=== PATIENT | male | born 1970 | race Caucasian/White ===

== ENCOUNTER 2017-06-12 11:03 | Observation (INO) | payer OTHER ==
[2017-06-12 12:00] LABS: Hematocrit 42 % (42-52); Hemoglobin 14.1 g/dl (14.0-18.0); Mean Corpuscular HGB Conc 33 g/dl (31-36); Mean Corpuscular Hemoglobin 28 pg (27-31); Mean Corpuscular Volume 85 fL (80-94); Mean Platelet Volume 7 um3 (7.4-10.4); Red Blood Count 4.98 10^6/ul (4.0-5.4); Red Cell Distribution Width 14 % (10.5-15)
[2017-06-12 12:16] LABS: Ammonia 40 mol/L (16-53)
[2017-06-12 12:17] LABS: Albumin 4.2 g/dL (3.2-5.2); BUN/Creatinine Ratio 20.4 (8-20); Calcium 9.1 mg/dL (8.6-10.3); EGFR African American 99.1 (>60); EGFR Non-African American 77.1 (>60); Globulin 2.6 g/dL (2-4); Magnesium 2.3 mg/dL (1.9-2.7); Potassium 4.6 mmol/L (3.5-5.0); Total Bilirubin 0.3 mg/dL (0.2-1.0); Total Protein 6.8 g/dL (6.4-8.9)
[2017-06-12 12:18] LABS: Troponin I 0.01 ng/mL (<0.04)
--- NOTE | 2017-06-12 12:19 | RAD ---
INDICATION: Syncope. COMPARISON: Comparison is made with a prior chest x-ray study from February 28, 2013. TECHNIQUE: Dual-energy PA and lateral views of the chest were obtained. FINDINGS: The heart is within normal limits in size. Mediastinal and hilar contours appear within normal limits. The lungs are clear. No pleural effusion is present. IMPRESSION: NO EVIDENCE FOR ACTIVE CARDIOPULMONARY DISEASE.
[2017-06-12 12:21] LABS: B Type Natriuretic Peptide 25 pg/mL
--- NOTE | 2017-06-12 12:56 | RAD ---
Indication: Dizziness and shortness of breath. Syncope. Comparison: No relevant prior exams available on the [facility] PACS for comparison. Technique: Noncontrast CT vertex of skull through foramen magnum. Report: The sulci, ventricles, and basal cisterns are normal for age. Pierre matter white matter differentiation is preserved without evidence for edema. No intra or extra axial hemorrhage, mass, or fluid collection detected. Unremarkable visualized orbital contents. Mild foci of ossification of the interhemispheric falx without concern. Unremarkable calvarium and skull base. Unremarkable scalp. The visualized paranasal sinuses and mastoid air spaces are clear. IMPRESSION: Negative unenhanced head CT.
[2017-06-12 13:21] LABS: TSH (Thyroid Stimulating Horm) 1.59 mcIU/mL (0.34-5.60)
[2017-06-12] MEDS ORDERED: Iodixanol* (CONTRAST) 320 MG/ML 100 ML SDV IV ONE (14:33)
[2017-06-12] MEDS ORDERED: Ibuprofen TAB* 600 MG PO PRN (15:32)
[2017-06-12] MEDS ORDERED: Aspirin EC Low Dose* 81 MG TAB.EC PO ONE (15:32)
[2017-06-12] MEDS ORDERED: Acetaminophen TAB* 325 MG PO PRN (15:32)
[2017-06-12] MEDS ORDERED: Ondansetron INJ* 2 MG/ML VIAL IV PRN (15:32)
[2017-06-12] MEDS ORDERED: Dextrose 50% Syringe 50 ML* 25 GM/50 ML SYRINGE IV PUSH PRN (15:34)
--- NOTE | 2017-06-12 15:38 | RAD ---
INDICATION: Shortness of breath and syncope. COMPARISON: Comparison is made with a prior chest x-ray study from June 12, 2017. TECHNIQUE: A CT angiogram of the chest was performed with intravenous following intravenous injection of 96 ml of Visipaque 320 nonionic contrast. Contiguous axial sections were obtained from the lung apices through the lung bases. Images were reconstructed in the coronal and sagittal planes. FINDINGS: There is slightly suboptimal opacification of the pulmonary arteries. No intraluminal filling defect or pulmonary embolism is seen. The heart is within normal limits in size. No pericardial effusion is present. The thoracic aorta is normal in caliber and demonstrates homogeneous contrast opacification. No significant enlarged mediastinal or hilar lymph nodes are seen. There is a small 4 mm low suspicion right upper lobe pulmonary nodule best seen on axial image #17. There is mild dependent bilateral lower lobe subsegmental atelectasis. The lungs are otherwise clear. No pleural effusion is seen. Images of the upper abdomen was reported infiltration of the liver no acute findings are seen. No significant focal osseous abnormality is seen. IMPRESSION: 1. SLIGHTLY LIMITED EXAM, NO EVIDENCE FOR PULMONARY EMBOLISM. 2. SMALL LOW SUSPICION 4 MM RIGHT UPPER LOBE PULMONARY NODULE. IF THE PATIENT HAS RISK FACTORS RECOMMEND A FOLLOW-UP CT OF THE CHEST IN ONE YEAR'S TIME WITHOUT CONTRAST. 3. HEPATIC STEATOSIS.
[2017-06-12 15:52] LABS: Uric Acid 6.2 mg/dL (4.4-7.6)
[2017-06-12 17:30] LABS: Urine Bilirubin Negative (Negative); Urine Glucose Negative (Negative); Urine Nitrite Negative (Negative)
[2017-06-12 17:33] LABS: Benzodiazepine Urine Screen None Detected (None Detect)
[2017-06-12] MEDS: NS 0.9% 1000 ML* 1,000 ML IV SCH (17:34)
[2017-06-12 17:41] LABS: Erythrocyte Sed Rate 10 mm/Hr (0-14)
[2017-06-12] MEDS: Insulin LISPRO* 1 UNITS UNIT SUBCUT SCH ×2 (18:31→20:22)
[2017-06-12] MEDS: Heparin VIAL(*) 5000 UNITS/ML VIAL (FIVE THOUSAND) SUBCUT SCH (23:06)
--- NOTE | 2017-06-13 00:56 | HP ---
CC: Dr. Sanchez * HISTORY AND PHYSICAL: DATE OF ADMISSION: 06/12/17 TIME OF EVALUATION: 3 p.m. PRIMARY CARE PROVIDER: Dr. Sanchez. CHIEF COMPLAINT: "I passed out." HOSPITAL COURSE: Mr. Pradhan is a 46-year-old male with a past medical history of obesity, type 2 diabetes who presented to the emergency room after a syncopal episode at home. The patient states that he has been in his usual state of health. He indulged a little during Thanksgiving, but states that the food was not too salty because his grandma cannot eat salty food. He states that last night he had a zayas cheeseburger at [facility]; and, when he woke up this morning, he noted that both ankles were swollen and they are tender to palpation and with ambulation. He tried to go upstairs and while climbing the stairs, he felt dizzy, lightheaded, had chest pressure, became diaphoretic and by the time he got upstairs, he was short of breath, so he sat down and he states he lost consciousness while sitting there for less than a minute. His mother called EMS , and by the time they got there, his symptoms had resolved. His glucose was 157. He states that this systolic blood pressure was in the 140s and he was brought into the emergency room for further evaluation. In the ED, orthostatic vital signs were checked and were positive with a blood pressure of 180/61, heart rate 61, lying down; 116/67, heart rate of 79, sitting up; and a heart rate of 101 with blood pressure of 88/61 while standing. He states that when orthostatics were checked, but at that time he was standing up, he was becoming diaphoretic again, but this resolved when he lay back down. He denies nausea, vomiting, diarrhea. He states that he has been drinking fluids as usual and does not feel dehydrated. He last saw Dr. Sanchez 5 months ago and at that time pravastatin was added to regimen, but he states that the medication caused muscle aches, so he stopped taking it a week ago. PAST MEDICAL HISTORY: 1. Obesity. 2. Type 2 diabetes. 3. Nephrolithiasis. MEDICATION LIST: Metformin 500 mg p.o. b.i.d. ALLERGIES: No known drug allergies. FAMILY HISTORY: His father has a history of diabetes. Mother is healthy. He denies history of tobacco or alcohol use. He has 1 beer sporadically. He works at [employer]. Surrogate decision maker is his father, Eliel Pradhan, phone number is [phone]. REVIEW OF SYSTEMS: A 14-point review of systems was performed and all the pertinent negatives and positive findings are in the HPI. PHYSICAL EXAMINATION GENERAL: The patient is a middle-aged obese male, lying in the ED stretcher, in no acute distress. VITAL SIGNS: Temperature 98.3, heart rate is 65, respiratory rate is 16, oxygen saturation 95% on room air, blood pressure is 113/65. HEENT: Pupils are equal. Moist mucous membranes. CHEST: Breath sounds present bilaterally with no added sounds. CVS: Normal S1 and S2. Regular rate and rhythm. ABDOMEN: Soft. Bowel sounds are present. EXTREMITIES: He has mild bilateral lower extremity edema, especially around his ankles. There is no erythema or warmth, but they are sensitive to touch. NEURO: The patient is alert, awake, oriented x3. Able to move all 4 extremities. DIAGNOSTIC STUDIES/LAB DATA: CBC showed WBC of 11, hemoglobin of 14, hematocrit of 42, platelets of 314 with 73% neutrophils. D-dimer was 410. Chemistry showed a sodium of 138, potassium 4.6, chloride of 105, bicarb of 27, BUN of 21, creatinine of 1.03, glucose of 171. Calcium 9.1, magnesium 2.3. LFTs are normal. BNP is 25. Uric acid is pending. CT of the brain was negative, unenhanced head CT. Chest x-ray showed no evidence for active cardiopulmonary disease and CTA of the chest was a slightly limited exam, but no evidence for pulmonary embolism. There is a small, low suspicion 4 mm right upper lobe pulmonary nodule. If the patient has risk factors, recommend a followup CT of the chest in 1 year time without contrast, and also showed hepatic steatosis. ASSESSMENT AND PLAN: Mr. Pradhan is a 46-year-old male with a past medical history of obesity, type 2 diabetes, hyperlipidemia that presented to the emergency room after a syncopal episode at home, found to be orthostatic. 1. Syncopal episode. The patient appears to be euvolemic at this time. His orthostatism could be secondary to autonomic neuropathy. As he received a study with contrast, he is going to receive gentle IV hydration and we are going to monitor his vital signs. I am also going to check random cortisol level to look for adrenal insufficiency. With his complaints of shortness of breath, diaphoresis, and chest pressure while going upstairs, acute coronary artery syndrome needs to ruled out. He will be admitted to the telemetry floor. We are going to check serial troponins, and if ACS is ruled out, he is going to have a pharmacological Myoview stress test, as he does not think he would be able to walk on the treadmill. He will also have an echocardiogram. 2. Lower extremity edema. The patient does not seem to fluid overloaded at this time, although he did have a zayas cheeseburger for dinner last night. As he is orthostatic, I do not think diuresis would be safe at this point. I am concerned his bilateral ankle edema could represent gout, even though he does not have erythema or warmth at this time, only pain. I am going to check an ESR and a uric acid level. 3. Type 2 diabetes. We will check hemoglobin A1c. His metformin is on hold for 48 hours as the patient underwent a contrast study. We are going to check his fingersticks a.c. and h.s. and cover with the lispro sliding scale. 4. DVT prophylaxis: The patient has a score of 3 on the DVT Prophylaxis Risk Assessment Guide and he will be started on subcutaneous heparin. 5. Code status is full. TIME SPENT: Approximately 50 minutes were spent with patient interview, medical records review, physical examination to complete this admission; more than half of this time was spent [id number] with the patient and coordination of care. [id number]/[facility] #: [id number] YVONNE
[2017-06-13] MEDS: NS 0.9% 1000 ML* 1,000 ML IV SCH (06:06)
[2017-06-13] MEDS: Heparin VIAL(*) 5000 UNITS/ML VIAL (FIVE THOUSAND) SUBCUT SCH (06:06)
[2017-06-13 06:30] LABS: HDL Cholesterol 35.9 mg/dL
[2017-06-13] MEDS: Insulin LISPRO* 1 UNITS UNIT SUBCUT SCH ×2 (07:46→11:34)
[2017-06-13] MEDS ORDERED: Aspirin EC Low Dose* 81 MG TAB.EC PO SCH (09:00)
--- NOTE | 2017-06-13 09:46 | ECHO ---
Patient: EVAN BALTAZAR [facility] Rec#: [id number] : 1970 Date: 06/13/2017 Age: 46y Height: 187.96 cm / 74.0 in Weight: 137.89 kg / 303.9 lbs Sex: M BSA: 2.6 Room#: [facility] Admit Date#: 06/12/2017 Type: Inpatient Referring: Chantell Card MD Reading: Gucci Alicia MD Hand Finisher: Angela Caro RDCS CC: Norm Sanchez MD Transthoracic Echocardiogram Indication: Syncope BP: 132/64 HR: 61 Rhythm: NSR Findings History: DM, obesity. Technical Comments: The study quality is fair. The study is technically limited due to patient body habitus. Completed at 0830. Left Ventricle: The left ventricular chamber size is normal. Moderate concentric left ventricular hypertrophy is observed. Global left ventricular wall motion and contractility are within normal limits. There is normal left ventricular systolic function. The estimated ejection fraction is 55-60%. There is no consistent Doppler evidence of clinically significant diastolic dysfunction. Left Atrium: The left atrium is slightly dilated. Right Ventricle: Moderator Band present. The right ventricle is mildly dilated. The right ventricular global systolic function is normal. Right Atrium: The right atrium is mildly dilated. Aortic Valve: The aortic valve is trileaflet. The aortic valve leaflets are mildly thickened. There is no evidence of aortic regurgitation. There is no evidence of aortic stenosis. Mitral Valve: The mitral valve leaflets are mildly thickened. There is a trace of mitral regurgitation. There is no evidence of mitral stenosis. Tricuspid Valve: The tricuspid valve leaflets are normal. There is a physiologic tricuspid regurgitation. The right ventricular systolic pressure is estimated at 33 mmHg. There is no tricuspid stenosis. Pulmonic Valve: The pulmonic valve appears normal. There is no evidence of pulmonic regurgitation. There is no pulmonic stenosis. Pericardium: There is no significant pericardial effusion. A pericardial fat pad is visualized. Aorta: There is no dilatation of the ascending aorta. There is no dilatation of the aortic arch. The aortic root is normal in size. Pulmonary Artery: The main pulmonary artery appears normal. Venous: The inferior vena cava is dilated. There is a greater than 50% respiratory change in the inferior vena cava dimension. Conclusions Global left ventricular wall motion and contractility are within normal limits. There is normal left ventricular systolic function. The estimated ejection fraction is 55-60%. The right ventricular global systolic function is normal. There is no evidence of aortic stenosis. There is a trace of mitral regurgitation. There is a physiologic tricuspid regurgitation. The right ventricular systolic pressure is estimated at 33 mmHg. There is no significant pericardial effusion. Measurements Name Value Normal Range RVIDd (AP) 2D 3.2 cm (0.9 - 2.6) RVDdMajor (2D) 4.5 cm (2.2 - 4.4) RVAW (2D) 0.7 cm (0.2 - 0.5) RAd ISD 4CH 4.6 cm (3.4 - 4.9) RA (A4C)W 4.8 cm (2.9 - 4.6) IVSd (2D) 1.3 cm (0.6 - 1) LVPWd (2D) 1.3 cm (0.6 - 1) LVIDd (2D) 3.8 cm (3.6 - 5.4) LVIDs (2D) 1.9 cm - LV FS (2D) 50 % (25 - 45) Aortic Annulus 2.1 cm (1.4 - 2.6) Ao root diameter (2D) 3.3 cm (2.1 - 3.5) Ascending Ao 3.3 cm (2.1 - 3.4) Aortic arch 2.5 cm (1.8 - 3.4) LA dimension (AP) 2D 4 cm (2.3 - 3.8) LAd ISD 4CH 5.2 cm (2.9 - 5.3) LA ISD 4CH W 4.8 cm (2.5 - 4.5) Name Value Normal Range LA ESV SP 4CH (A/L) 84 ml - LA ESV SP 2CH (A/L) 69 ml - LA ESV BP (A/L) 77 ml - LA ESV BP (A/L) index 30 ml/m2 - LA ESV SP 4CH (MOD) 72 ml - LA ESV SP 2CH (MOD) 67 ml - Name Value Normal Range MV E-wave Vmax 0.96 m/sec - MV deceleration time 253.99 msec - MV A-wave Vmax 0.67 m/sec - MV E:A ratio 1.43 ratio - LV septal e' Vmax 0.09 m/sec - LV lateral e' Vmax 0.13 m/sec - LV E:e' septal ratio 10.67 ratio - LV E:e' lateral ratio 7.38 ratio - Name Value Normal Range AV Vmax 1.4 m/sec - AV VTI 28.82 cm - AV peak gradient 8.28 mmHg - AV mean gradient 4.01 mmHg - LVOT Vmax 1.21 m/sec - LVOT VTI 21.59 cm - LVOT peak gradient 5.89 mmHg - LVOT mean gradient 3.08 mmHg - JENI Vmax 1.37 m/sec - Name Value Normal Range TR Vmax 2.1 m/sec - TR peak gradient 18 mmHg - RAP 15 mmHg - RVSP 33 mmHg - IVC diameter 2.6 cm - Name Value Normal Range PV Vmax 1.07 m/sec - PV peak gradient 4.64 mmHg -
--- NOTE | 2017-06-13 11:08 | RAD ---
Edited for charges. INDICATION: Chest pressure. COMPARISON: There are no prior studies available for comparison. Technique: A single day myocardial perfusion stress study was performed. Initially the resting study was performed. The patient was given an intravenous injection of 10.3 mCi of technetium 99m tetrofosmin and and the heart was imaged in multiple projections. The patient returned later in the day and under the direction of Dr. Burch, the patient was given intervenous injection of Lexiscan. Subsequently the patient was given intravenous injection of 25.7 mCi of technetium 99m tetrofosmin and the heart was imaged in multiple projections. Images were reconstructed in the axial, sagittal and coronal planes and in a 3- D format. FINDINGS: There appears to be normal wall motion and myocardial thickening. The left ventricular ejection fraction was calculated to be 65%. No significant focal abnormalities are seen on the post pharmacologic stress or resting images. IMPRESSION: NO EVIDENCE FOR INFARCT OR ISCHEMIA. ASSESSMENT: Low risk. Based on imaging criteria from ACC/AHA 2002 Guideline Update for the Management of Patients With Chronic Stable Angina Table 23. Noninvasive Risk Stratification. MTDD
[2017-06-13 11:36] VITALS: BP 132/85
[2017-06-13] MEDS ORDERED: Regadenoson* 0.4 MG/5 ML SYRINGE ONE (13:08)
--- NOTE | 2017-06-14 03:09 | DS ---
DISCHARGE SUMMARY: DATE OF ADMISSION: 06/12/17 DATE OF DISCHARGE: 06/13/17 ADMITTING PROVIDER: Chantell Greene MD ATTENDING PHYSICIAN: Barney Nur MD PRIMARY CARE PROVIDER: Dr. Sanchez. CHIEF COMPLAINT: Passed out/syncope. PRINCIPAL DIAGNOSES: Orthostatic hypotension with possible autonomic neuropathy secondary to diabetes mellitus. PAST MEDICAL HISTORY: Type 2 diabetes mellitus, on oral agents; nephrolithiasis. HISTORY OF PRESENT ILLNESS AND HOSPITAL COURSE: Mr. Pradhan is a 46-year-old male, PMH of obesity, type 2 diabetes, presents with syncopal events. He was in his usual state of health, overindulged during the feast and then had a very large zayas cheeseburger at [facility] morning of admission and noted that both his ankles were swollen and tender to palpation without ambulation, worse on the right. He tried to ambulate upstairs, suddenly he felt dizzy, lightheaded with some chest pressure, he became diaphoretic and by the time he got to top of the stairs, was short of breath, he sat down and believes he lost consciousness, he says for at least 5 to 6 seconds, the H and P says for less than a minute. His mother called EMS. [facility] was [place] [facility] [place]. He was found to be markedly orthostatic with blood pressures __ ___/61, heart rate 61 while lying; 116/67, heart rate 79 while sitting up; 88/ 61 with heart rate 101 while standing. He started to get diaphoretic again when standing up, but this resolved when he laid back down. He was admitted for syncopal workup. He had a CTA chest, which showed no pulmonary embolism, although is slightly limited exam, small 4-mm right upper lobe pulmonary nodule , low suspicion, but recommended to follow up within 1 year and hepatic steatosis. He had echocardiogram, which showed preserved ejection fraction 55% to 60%, trace mitral regurgitation. He had 3 negative troponin. He had a nuclear stress test, which showed no evidence of infarction or ischemia, was read as low risk. He had a CT of the head, which was also negative. He will need to follow up with Dr. Sanchez, his primary care physician, as he already has scheduled followup in about 1 month anyway for his diabetic management. ECG and telemetry did not show any evidence of arrhythmia. A1c was 7.0. DISCHARGE MEDICATIONS: Include metformin 500 mg p.o. b.i.d. DISCHARGE DIET: Carbohydrate consistent, unchanged. ACTIVITY LEVEL: No restrictions. FOLLOWUP: With Dr. Sanchez in 3 to 5 days of discharge for syncopal followup and diabetes management. TIME SPENT: Time spent on discharge was 35 minutes. [id number]/[facility] #: [id number] YVONNE
--- NOTE | 2017-06-16 12:38 | ED ---
Levy Kramer Thomas, scribed for Nick Castano MD on 06/12/17 at 1140 . Syncope/Near Syncope - HPI Summary HPI Summary: The pt is a 46 y/o M presenting to the ED BIBA s/p a syncopal episode that occurred earlier today. The patient woke up this morning with right ankle swelling and pain. When the patient got out of his bed, he became short of breath and winded as he walked throughout his house. He then sat down and had a syncopal episode with positive LOC for 15 seconds. This syncope was witnessed by his mother. In the ED, the patient denies any SOB. Pt denies CP, STOCKTON, dizziness, palpitations, nausea, vomiting, or fever. PMHx includes NIDDM. He is on metformin. - History Of Current Complaint Chief Complaint: EDShortnessOfBreath Time Seen by Provider: 06/12/17 11:14 Hx Obtained From: Patient Onset/Duration: Lasting Hours - earlier today, Resolved Context: Witnessed Activity At Onset: Other - Walking throughout house Associated Head Trauma: No Aggravating Factor(s): Nothing Alleviating Factor(s): Spontaneous Resolution Associated Signs And Symptoms: Other - NEGATIVE: CP, STOCKTON, dizziness, palpitations , nausea, vomiting, or fever - Allergies/Home Medications Allergies/Adverse Reactions: Allergies Allergy/AdvReac Type Severity Reaction Status Date / Time No Known Allergies Allergy Verified 02/28/13 12:39 Home Medications: Home Medications metFORMIN* [Glucophage 500 MG TAB *] 500 mg PO BID 06/12/17 [History Confirmed 06/12/17] PMH/Surg Hx/FS Hx/Imm Hx Previously Healthy: No Endocrine/Hematology History: Reports: Hx Diabetes Sensory History: Reports: Hx Contacts or Glasses Opthamlomology History: Reports: Hx Contacts or Glasses - Immunization History Date of Tetanus Vaccine: Unk Date of Influenza Vaccine: Fall 2011 Infectious Disease History: No Infectious Disease History: Denies: History Other Infectious Disease, Traveled Outside the [place] in Last 30 Days - Family History Known Family History: Positive: Diabetes - Social History Lives: With Family Alcohol Use: None Hx Substance Use: No Substance Use Type: Reports: None Hx Tobacco Use: No Smoking Status (MU): Never Smoked Tobacco Review of Systems Negative: Fever Negative: Palpitations, Chest Pain Positive: Shortness Of Breath Negative: Vomiting, Nausea Positive: Other - R ankle pain and swelling Neurological: Negative - dizziness, Other - LOC Positive: Syncope. Negative: Headache All Other Systems Reviewed And Are Negative: Yes Physical Exam - Summary Physical Exam Summary: VITAL SIGNS: Reviewed. GENERAL: Patient is an obese male who is lying comfortable in the stretcher. Patient is not in any acute respiratory distress. HEAD AND FACE: No signs of trauma. No ecchymosis, hematomas or skull depressions. No sinus tenderness. EYES: PERRLA, EOMI x 2, No injected conjunctiva, no nystagmus. EARS: Hearing grossly intact. Ear canals and tympanic membranes are within normal limits. MOUTH: Oropharynx within normal limits. NECK: Supple, trachea is midline, no adenopathy, no JVD, no carotid bruit, no c- spine tenderness, neck with full ROM. CHEST: Symmetric, no tenderness at palpation LUNGS: Clear to auscultation bilaterally. No wheezing or crackles. CVS: Regular rate and rhythm, S1 and S2 present, no murmurs or gallops appreciated. ABDOMEN: Soft, non-tender. No signs of distention. No rebound no guarding, and no masses palpated. Bowel sounds are normal. EXTREMITIES: There is 1+ edema in both ankles. FROM in all major joints, no cyanosis or clubbing. NEURO: Alert and oriented x 3. No acute neurological deficits. Speech is normal and follows commands. SKIN: Dry and warm Triage Information Reviewed: Yes Vital Signs On Initial Exam: Initial Vitals Temp Pulse Resp BP Pulse Ox 98.3 F 65 16 110/64 100 06/12/17 11:10 06/12/17 11:10 06/12/17 11:10 06/12/17 11:10 06/12/17 11:10 Vital Signs Reviewed: Yes Diagnostics - Vital Signs Vital Signs Temp Pulse Resp BP Pulse Ox 06/12/17 11:10 98.3 F 65 16 110/64 100 - Laboratory Result Diagrams: 06/12/17 11:51 06/12/17 11:51 Lab Statement: Any lab studies that have been ordered have been reviewed, and results considered in the medical decision making process. - Radiology CXR Xray Interpretation: No Acute Changes - NO EVIDENCE FOR ACTIVE CARDIOPULMONARY DISEASE. ED physician has reviewed this report and agrees. Radiology Interpretation Completed By: Radiologist - CT CT Brain CT Interpretation: No Acute Changes - Negative unenhanced head CT. ED physician has reviewed this report and agrees. CT Interpretation Completed By: Radiologist CTA Chest/Thorax CT Interpretation: No Acute Changes - 1. SLIGHTLY LIMITED EXAM, NO EVIDENCE FOR PULMONARY EMBOLISM. 2. SMALL LOW SUSPICION 4 MM RIGHT UPPER LOBE PULMONARY NODULE. IF THE PATIENT HAS RISK FACTORS RECOMMEND A FOLLOW-UP CT OF THE CHEST IN ONE YEAR'S TIME WITHOUT CONTRAST. 3. HEPATIC STEATOSIS. ED physician has reviewed this report and agrees. CT Interpretation Completed By: Radiologist - EKG 11:42 Cardiac Rate: NL EKG Rhythm: Sinus Rhythm EKG Interpretation: [address] elevations. Course/Dx Assessment/Plan: The pt is a 46 y/o M presenting to the ED BIBA s/p a syncopal episode that occurred earlier today. The patient woke up this morning with right ankle swelling and pain. When the patient got out of his bed, he became short of breath and winded as he walked throughout his house. He then sat down and had a syncopal episode with positive LOC for 15 seconds. This syncope was witnessed by his mother. In the ED, the patient denies any SOB. Pt denies CP, STOCKTON , dizziness, palpitations, nausea, vomiting, or fever. PMHx includes NIDDM. He is on metformin. Test results are without any significant abnormalities. Head CT shows negative unenhanced head CT. CXR shows no evidence for active cardiopulmonary disease. I did a D-dimer since the patient was having shortness of breath before his collapse, and his Chest CT is negative for pulmonary embolism. The patient had orthostatic hypotension. He was given IV fluids, and at this point I discussed the case with Dr. Gloria who accepts the patient for admission. - Diagnoses Provider Diagnoses: Syncope, Orthostatic hypotension - Physician Notifications Discussed Care of Patient With: Chantell Gloria Time Discussed With Above Provider: 14:27 Instructed by Provider To: Admit As Inpatient Discharge - Discharge Plan Condition: Fair Disposition: ADMITTED TO [facility] documentation as recorded by the Levy gaston Thomas accurately reflects the service I personally performed and the decisions made by me, Nick Castano MD.
== END 2017-06-13 14:24 | disposition home or self-care (01) ==
LOC: ED 11:03 → MEDTELE 15:27
PROVIDERS: ADMIT Internal Medicine; ATTEND Internal Medicine
DX: R55 Syncope and collapse (principal); E11.9 Type 2 diabetes mellitus without complications; Z79.84 Long term (current) use of oral hypoglycemic drugs; Z87.442 Personal history of urinary calculi; E66.9 Obesity, unspecified; I51.7 Cardiomegaly; R60.9 Edema, unspecified; N28.89 Other specified disorders of kidney and ureter; Z88.0 Allergy status to penicillin; I34.0 Nonrheumatic mitral (valve) insufficiency; I77.819 Aortic ectasia, unspecified site; R06.02 Shortness of breath
CPT/HCPCS: 36415; 70450; 71020; 71275; 78452; 80053; 80061; 80307; 81003; 82140; 82533; 82550; 83036; 83735; 83880; 84443; 84484; 84550; 85025; 85379; 85652; 93005; 93017; 93306; 96372; 99284; A9270-GY; A9502; G0378; J1644; J2785; Q9967